=== PATIENT | female | born 1945 | race African-American/Black ===

== ENCOUNTER → 2016-07-14 | Outpatient (CLI) | payer MEDICARE, OTHER ==
[~2016-07-14] MED LIST: REGADENOSON 0.4 MG/5 ML DISP.SYRIN. IV ONE
--- NOTE | 2016-07-14 09:23 | RAD ---
DATE: 07/14/2016 EXAM: DIGITAL SCREEN BILAT W/CAD HISTORY: Routine screening COMPARISON: 11/13/2011 This study was interpreted with the benefit of Computerized Aided Detection (CAD). FINDINGS: The breasts are predominantly fatty in nature. No new or enlarging breast densities are seen. Benign type calcifications are present. No suspicious microcalcifications have developed. IMPRESSION: Stable mammograms without evidence of malignancy. BI-RADS CATEGORY: 2 BENIGN FINDING(S) RECOMMENDED FOLLOW-UP: 12M 12 MONTH FOLLOW-UP PQRS compliance statement: Patient information was entered into a reminder system with a target due date for the next mammogram. Mammography is a sensitive method for finding small breast cancers, but it does not detect them all and is not a substitute for careful clinical examination. A negative mammogram does not negate a clinically suspicious finding and should not result in delay in biopsying a clinically suspicious abnormality. "Our facility is accredited by the [employer] Mammography Program."
--- NOTE | 2016-07-14 09:24 | RAD ---
APPROVED REPORT Patient Location: OUT-PATIENT Laterality:Bilateral Indications Bruit RT Doppler Spectral Velocity Analysis Right Left pCCA 61/12 cm/spCCA 80/17 cm/s mCCA 71/16 cm/smCCA 74/16 cm/s dCCA 63/16 cm/sdCCA 63/15 cm/s Bulb 52/15 cm/sBulb 51/16 cm/s ECA 64/ cm/sECA 31/ cm/s pICA 46/14 cm/spICA 49/22 cm/s Derrick 60/19 cm/smICA 77/22 cm/s dICA 62/21 cm/sdICA 76/29 cm/s Vert. 49/ cm/sVert. 39/ cm/s Subcl. 72/ cm/sSubcl. 139/ cm/s ICA/CCA 0.87ICA/CCA 0.96 Findings Grayscale images of the bilateral common carotid arteries and internal and external carotid arteries reveals mild intimal hyperplasia without any significant obstructive disease. Velocity profiles and spectral tracings demonstrate no evidence of significant stenosis in the bilate ral internal carotid vessels.. The bilateral vertebral velocities are antegrade. No significant fe nosis is identified in the subclavian vessels bilaterally. Critical Notification Critical Value: No <Conclusion> No significant stenosis in the bilateral carotid arterial system.
--- NOTE | 2016-07-14 11:34 | CARD ---
APPROVED REPORT EXAM: Two-dimensional and M-mode echocardiogram with Doppler and color Doppler. Other Information Quality : Good INDICATION Chest Pain 2D DIMENSIONS RVDd3.1 (2.9-3.5cm)Left Atrium(2D)4.2 (1.6-4.0cm) IVSd1.0 (0.7-1.1cm)Aortic Root(2D)2.7 (2.0-3.7cm) LVDd5.2 (3.9-5.9cm)LVOT Diameter2.0 (1.8-2.4cm) PWd1.1 (0.7-1.1cm)LVDs4.2 (2.5-4.0cm) FS (%) 22.0 %SV55.3 ml LVEF(%)45.0 (>50%) Aortic Valve AoV Peak Masood.117.8cm/sAoV VTI26.2cm AO Peak GR.5.6mmHgLVOT Peak Masood.72.6cm/s AO Mean GR.3mmHgAVA (VMAX)2.02cm2 SHAKIRA (VTI)2.30cm2 Mitral Valve MV E Jibryswg66.3cm/sMV DECEL [id number] MV A Vcjjjjqv642.4cm/sE/A Ratio0.9 Tricuspid Valve TR P. Kgnchksu760fw/sRAP LPJFGESN9siGi TR Peak Gr.45pxQhLJNV21cqDk Pulmonary Vein S1 Btidmkcf32.2cm/sD2 Tljpuwam61.9cm/s PVa [id number] LEFT VENTRICLE The left ventricle is normal size. There is normal left ventricular wall thickness. Low normal EF at 50-55%. May be related to severe bradycardia with HR of 50. There is normal LV segmental wall motion. Transmitral Doppler flow pattern is Grade I-abnormal relaxation pattern. RIGHT VENTRICLE The right ventricle is normal size. The right ventricular systolic function is normal. ATRIA The left atrium is mildly dilated. The right atrium size is normal. The interatrial septum is intact with no evidence for an atrial septal defect or patent foramen ovale as noted on 2-D or Doppler imagi ng. AORTIC VALVE The aortic valve is normal in structure and function. Doppler and Color Flow revealed no significant aortic regurgitation. There is no significant aortic valvular stenosis. MITRAL VALVE The mitral valve is thickened and calcified. There is no mitral valve stenosis. Doppler and Color-fanny w revealed mild mitral regurgitation. TRICUSPID VALVE The tricuspid valve is normal in structure and function. Doppler and Color Flow revealed trace tricus pid regurgitation. The PA pressure was estimated at 29 mmHg. There is no tricuspid valve stenosis. PULMONIC VALVE Doppler and Color Flow revealed mild pulmonic valvular regurgitation. There is no pulmonic valvular s tenosis. GREAT VESSELS The aortic root is normal in size. The ascending aorta is normal in size. The IVC is normal in size a nd collapses >50% with inspiration. PERICARDIAL EFFUSION There is no evidence of significant pericardial effusion. Critical Notification Critical Value: No <Conclusion> Low normal EF at 50-55%. May be related to severe bradycardia with HR of 50. There is normal LV segmental wall motion. Doppler and Color Flow revealed mild pulmonic valvular regurgitation.
--- NOTE | 2016-07-14 15:20 | RAD ---
APPROVED REPORT Test Type: Pharmacological Stress Nurse/Tech: Shelby Andrea R.N. Test Indications: c/p Cardiac History: mitral valve leak, htn Medications: See Electronic Medical Record Medical History: See Electronic Medical Record Resting ECG: SB w/ inverted T waves in leads AVR,III, V1,V3 Resting Heart Rate: 50 bpm Resting Blood Pressure: 185/72mmHg Pretest Chest Pain: No chest pain Nurse/Tech Notes S1S2. lungs CTA Consent: The procedure was explained to the patient in lay terms. Informed consent was witnessed. Jude eout was entered into [employer]. History and Stress Test performed by [facility]. Details Pharmacologic stress testing was performed using 0.4mg per 5ml of regadenoson given intravenously ove r 7-10 seconds. Stress Symptoms SOA, funny stomach feeling, increased H/A, pt already had h/a . T waves became inverted in leads II,A VF,V4-V6 after lexiscan given but did return upright again prior to the end of recovery period POST EXERCISE Reason for Termination: Infusion complete Max HR: 96 bpm Max Blood Pressure: 149/68mmHg Blood Pressure response to exercise: Normal blood pressure response during stress. Heart Rate response to exercise: wnl Chest Pain: No. Arrhythmia: No. ST Change: No. INTERPRETATION Stress EKG Conclusion: Baseline EKG showed sinus rhythm. No ischemic changes at peak stress. No arr hythmias. Imaging Protocol IMAGE PROTOCOL: Rest Tc-99m/stress Tc-99m 1 day Rest: Stress: Viability: Radiopharm.Tc99m KxlpsgzmmYb78i Sestamibi Tjga42hMe 32mCi Duration 15min. 12min. Img Date 07/14/2016 07/14/2016 Inj-Img Fowp67faa. 6min. Rest Admin Site:IV - Right ForearmAdministrator:ABBY Newberry Stress Admin Site: IV - Right ForearmAdministrator: ABBY Newberry STRESS DATA End Diast. Vol.105.0mlAv. Heart Rate56.0bpm End Syst. Vol.47.0mlCO Index BSA0.0L/min Myocardial Tmss266.0gEject. Khhqasys38.0% Stress Rates Pk. Fill Rate1.63EDV/secLVtime Pk. Fill 277.50msec Pk. Empty Rate2.42ESV/secLVtime Pk. Fntrb002.89msec 06/17 Pk. Fill1.17EDV/sec Stress Scores Regional WT1.00Summed WT9.00 Regional WM0.00Summed WM1.00 Study quality was good. Left Ventricular size was Normal at Rest and Stress. Lung uptake was Normal. Left Ventricular ejection fraction is 55%. LV Perfusion Scintigraphic images showed moderate reversible defect involving the anterior wall consistent with is chemia. Wall Motion Normal regional wall motion. LV Perf. Quant 17 Seg. SSS21.00 17 Seg. SRS0.00 17 Seg. SDS21.00 Stress Defect Extent (% LAD)69.40Rest Defect Extent (% LAD)0.00Rev. Defect Extent (% LAD)69.40 Stress Defect Extent (% LCX) 76.30Rest Defect Extent (% LCX)0.00Rev. Defect Extent (% LCX)76.30 Stress Defect Extent (% RCA)0.00Rest Defect Extent (% RCA)0.00Rev. Defect Extent (% RCA)0.00 Stress Defect Extent (% RENETTA)52.60Rest Defect Extent (% RENETTA)0.00Rev. Defect Extent (% RENETTA)52.60 Conclusion 1. Regadenoson cardioisotope stress test showed moderate amount of anterior wall ischemia. 2. Normal left ventricular systolic function with ejection fraction calculated at 55%. 3. Intermediate risk for cardiac events.
== END | disposition home or self-care (01) ==
LOC: NM 07:41
PROVIDERS: ATTEND Internal Medicine Cardiovascular Disease
DX: Z12.31 Encounter for screening mammogram for malignant neoplasm of breast (principal); I37.1 Nonrheumatic pulmonary valve insufficiency; R07.9 Chest pain, unspecified; R09.89 Other specified symptoms and signs involving the circulatory and respiratory systems
CPT/HCPCS: 78452; 93017; 93306; 93880; 96374; 96375; 96376; A9500; G0202; J2785; 77067

== ENCOUNTER → 2018-02-24 | Outpatient (CLI) | payer MEDICARE, OTHER ==
--- NOTE | 2018-02-24 15:17 | KCIC ---
History: Worsening right hip pain for one year. Comparison: None. Findings: AP and frog-leg views of the right hip. No acute fracture or dislocation is identified. No significant degeneration is seen. Hip joint space appears preserved. Impression: Unremarkable right hip radiographs for age. Electronically signed by: Yann Chery MD (02/24/2018 3:14 PM) [facility]
== END | disposition home or self-care (01) ==
LOC: KCIC 12:48
PROVIDERS: ATTEND Family Medicine
DX: M25.551 Pain in right hip (principal)
CPT/HCPCS: 73502

== ENCOUNTER → 2018-03-16 | Outpatient (CLI) | payer MEDICARE, OTHER ==
--- NOTE | 2018-03-16 14:37 | KCIC ---
MRI Lumbar Spine without contrast History: Low back pain, bilateral hip pain, pain for one month, muscle spasms Technique: Multiplanar, multi sequential noncontrast MR imaging was performed of the lumbar spine. Contrast: None Comparison: June 29, 2014 Findings: Lumbar vertebral body stature is preserved. There is negligible anterior spondylolisthesis L3-4. There is ffyw-oq-pfteoqzz degenerative disc disease at L3-4 and to lesser degree at L4-5, progressed at L3-4 in the interval. There is mild disc desiccation L5-S1. 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 There is no significant marrow edema. Conus terminates at L1-L2. L2-L3: There is guft-kd-yvdmvrce facet degenerative change and minimal buckling of the ligamentum flavum. Neural foramina and spinal canal are adequate. L3-L4: There is mild buckling of the ligamentum flavum and facet degenerative change. There is negligible bulge. Neural foramina are overall adequate, new superimposed small protrusion/extrusion near the proximal extraforaminal right L3 nerve root without significant displacement. Spinal canal is adequate. L4-L5: There is minimal buckling of the ligamentum flavum. There is negligible disc osteophyte complex and bulge as seen previously. Spinal canal is overall adequate. Neural foramina are adequate. L5-S1: There is fairly severe facet degenerative change. Spinal canal is adequate. There is mild posterior narrowing of the left neural foramen, right neural foramen adequate. Impression: 1. There is no new significant lumbar spinal stenosis. There has been progression of mild to moderate degenerative disc disease at L3-4, to lesser degree L4-5. There is now negligible anterior spondylolisthesis L3-4. There is multilevel lumbar facet degenerative change greatest at L5-S1. Shallow right extraforaminal protrusion/small extrusion at L3-4 as near the extraforaminal right L3 nerve root without significant impingement. Electronically signed by: Mark Johnson MD (03/16/2018 2:33 PM) [facility]
== END | disposition home or self-care (01) ==
LOC: KCIC MRI 13:48
PROVIDERS: ATTEND Orthopaedic Surgery Sports Medicine
DX: M51.36 Other intervertebral disc degeneration, lumbar region (principal); M51.26 Other intervertebral disc displacement, lumbar region
CPT/HCPCS: 72148

== ENCOUNTER → 2018-04-20 | Outpatient (CLI) | payer MEDICARE, OTHER ==
--- NOTE | 2018-04-20 15:18 | KCIC ---
Bilateral lower extremity arterial Doppler dated 04/20/2018. No comparison available. Clinical data indication: Bilateral leg pain. FINDINGS: Grayscale, color-flow and spectral waveform analysis performed. There is mild luminal irregularity throughout, consistent with diffuse atherosclerotic plaquing. No focal stenosis. The waveforms are triphasic to biphasic throughout. There is some mild relative velocity elevation of the right superficial femoral artery at its mid aspect, measuring 176 cm/s. IMPRESSION: 1. Diffuse atherosclerotic plaquing with no evidence of hemodynamically significant stenosis. 2. Relative velocity elevation of the mid right superficial femoral artery suggesting a mild to moderate grade narrowing. Electronically signed by: Yann Geiger MD (04/20/2018 3:14 PM) [facility]
== END | disposition home or self-care (01) ==
LOC: KCIC US 13:17
PROVIDERS: ATTEND Psychiatry & Neurology Neurology with Special Qualifications in Child Neurology
DX: I70.203 Unspecified atherosclerosis of native arteries of extremities, bilateral legs (principal)
CPT/HCPCS: 93925

== ENCOUNTER → 2018-04-29 | Outpatient (CLI) | payer MEDICARE, OTHER ==
[~2018-04-29] MED LIST changes: +ALBU2.5V5 NEB; +BACL20TA PO; +DICL100G18 TP; +DULO20CA PO; +ERGO500027 PO; +FENT1PAT13 TD; +FLUT9.9S NS; +IOHEXOL 180 MG/ML 10 ML VIAL. ONE; +LEVO150T PO; +LIDOCAINE 1% PF 2 ML VIAL. ONE; +LIOT5TAB11 PO; +LISI-334 PO; +LORA0.5T PO; +METF500T16 PO; +MULT1TAB52 PO; +NITR0.4T SL; +OMEP40CA5 PO; +PHEN8TAB PO; +POTA20TA82 PO; +PROVENTIL HFA6.7 GM IH; -REGADENOSON 0.4 MG/5 ML DISP.SYRIN. IV ONE; +SUCR1TAB35 PO; +TRIA15CR2 TP; +TRIM300C17 PO; +lidoderm patch; +methylPREDNISolone ACETATE 40 MG/ML VIAL. ONE; +methylPREDNISolone ACETATE 80 MG/ML VIAL. ONE
--- NOTE | 2018-04-29 22:48 | PAIN ---
DATE OF SERVICE: 04/29/2018 INITIAL CONSULTATION FOR PAIN CLINIC CHIEF COMPLAINT: Bilateral lower extremity pain. HISTORY OF PRESENT ILLNESS: The patient is a 72-year-old female who presents with history of pain for about 1 year, gradually increasing, not a result of any specific injury or action that she is aware of. Pain in the bilateral lower extremities is mostly in the posterior gluteus, posterior thigh, lateral thighs, especially the anterior thighs on the left and to the medial lower legs and anterior lower leg. The patient reports it is throbbing with tingling, numbness, radiating, aching, cramping, burning, feels cold as well in the legs bilaterally. No specific injury or action is noted. The patient reports it wakes her up from sleep about 4:00 a.m. every morning and she cannot go back to sleep because of the pain. The patient report it does not affect her bowel or bladder control, but does affect her ability to walk fairly significantly, worse with walking, standing, and changing positions, but still present with sitting even for more than about 5-10 minutes and lying down. The patient reports no loss of motor function, but significant fatigability especially the left lower extremity, but both legs with ambulation, walking and activity. The patient rates her disability rate from 0-10, 10 being the worst as a 9 to 10 with recreation and social activity, 8 to 10 with occupation, 8 with sleeping and 1 with self-care activities. The patient has had some trigger point injections, which she said were helpful in the back, but those were mostly for her back and hips. She has had no other formal physical therapy at this time and no other stretching exercise or chiropractic treatments otherwise. The patient did have an MRI scan of the lumbar spine showing mild to moderate degenerative disk disease at L3-L4, lesser degree at L4-L5 with multilevel facet degenerative changes greatest at L5-S1 with shallow disk extrusion at L3-L4 without significant impingement on the right L3 nerve root. Also hip films showing mild degenerative change of both hips without acute osseous abnormalities bilaterally. The patient has had venous Doppler studies, which were normal in the lower extremities as well, both arterial and venous. PAST MEDICAL HISTORY: The patient's past medical history is significant for hypertension, mitral valve leakage and arthritis. PREVIOUS SURGERY: Include hysterectomy, foot surgery, cholecystectomy and cardiac catheterization. CURRENT MEDICATIONS: Include Proventil inhaler, vitamin D2, lorazepam, Voltaren, triamcinolone, Cymbalta, baclofen, multivitamins, fentanyl, potassium, phentermine, Carafate, lisinopril, Tigan, Nitrostat, Synthroid, fluticasone nasal spray, metformin, Cytomel and omeprazole. ALLERGIES: The patient has no known drug allergies. FAMILY HISTORY: Significant for no major medical problems or conditions she is aware of. SOCIAL HISTORY: The patient does not drink alcohol, does not smoke, does not use any illegal, illicit or recreational drugs, is , lives with her spouse, lives locally in [place], [place]. REVIEW OF SYSTEMS: The patient's review of systems is positive for those items mentioned in the history of present illness. All systems reviewed and otherwise negative. It is complete, full and well documented on the patient's chart. PHYSICAL EXAMINATION: VITAL SIGNS: Today, the patient's blood pressure is 156/85, pulse 54, respirations are 16, temperature is 98.0 degree Fahrenheit, height is 5 feet 7 inches and weight is 170 pounds. GENERAL: The patient is awake, alert, oriented, appropriate, very pleasant demeanor. HEENT: Head shows normocephalic and atraumatic. Extraocular movements are intact and symmetrical. Oral cavity: Mucous membranes are moist and pink. Dentition is intact. NECK: Shows anterior throat is supple without palpable lymphadenopathy noted. Swallow reflex is symmetrical. CHEST: Shows normal with inspection. Breath sounds are clear to auscultation bilaterally. HEART: Shows S1 and S2 clear. No murmurs are auscultated. ABDOMEN: Soft, nontender and nondistended. No palpable organomegaly is noted. No rebound or guarding demonstrated. BACK: Shows spine grossly in the midline. Normal appearing thoracic kyphosis and lumbar lordotic curvature. No previous surgical scars are noted. Lumbar paraspinous muscle shows symmetrical on inspection. On palpation shows some moderate tenderness, but only diffusely in the middle and lower distribution of the paraspinous muscles without radiation. The patient shows good rotational motion of the lumbar spine both laterally as well as extension and flexion without significant pain reported. The patient shows no tenderness over the sacrum or sacroiliac regions over the spinous processes bilaterally. EXTREMITIES: The patient's lower extremities show deep tendon reflexes at 1+ in the patellar and tendo calcaneus tendons are equal. Motor exam is strong with 5/5 dorsiflexion, extension, quadriceps and hamstring flexion and are symmetrical. The patient's peripheral pulses are 1+ posterior tibial. No peripheral edema. Straight leg raising noted to be negative for reproduction of radicular symptoms bilaterally. The patient will stand, stand on her toes without significant difficulty or loss of balance and is able to walk with a normal-appearing gait, is not using any assistive devices with her on her visit today. SKIN: Shows warm and dry and good turgor. No edema, no sores, rashes or bruising. IMPRESSION: 1. This is a 72-year-old female with a long history approximately one year of low back, bilateral lower extremity pain, left slightly worse than the right. 2. MRI scan of the lumbar spine as noted. 3. Arthritis. 4. Hypertension. PLAN: Options were discussed with the patient including conservative medical management, physical therapy, interventional techniques. She would like to pursue with interventional techniques. We discussed a lumbar epidural steroid injection using description as well as anatomical models to describe the procedure. Risks were then discussed including, but not limited to bleeding, infection, possibility of epidural hematoma, subsequent neurological compromise, dural puncture, headaches, spinal cord and/or nerve damage, side effects of steroid medication and poor results regarding pain control. The patient understands and wished to proceed. The patient will return to the clinic in approximately 2 weeks for followup, was counseled as to return appointment, activity level and side effects to be aware of. DIAGNOSIS: Lumbar radiculopathy with lumbar degenerative disk disease. PROCEDURES: Lumbar epidural steroid injection, translaminar approach at the L3-L4 level using C-arm fluoroscopic guidance under sterile prep and drape using local anesthetic. MEDICATION INJECTED: A total of 120 mg Depo-Medrol plus 10 mL of preservative-free normal saline and 2 mL of Isovue for contrast. CONDITION AT DISCHARGE: Stable. The patient tolerated the procedure well and had no complications. JOANNA SHANKAR MD DR: SHAKIR/carol JOB#: [id number] / [id number] JIMMIE Roth MD
== END | disposition home or self-care (01) ==
LOC: PNCL 09:25
PROVIDERS: ATTEND Anesthesiology
DX: M51.16 Intervertebral disc disorders with radiculopathy, lumbar region (principal); M19.90 Unspecified osteoarthritis, unspecified site; I10 Essential (primary) hypertension; I25.10 Atherosclerotic heart disease of native coronary artery without angina pectoris; Z79.899 Other long term (current) drug therapy; Z98.890 Other specified postprocedural states
CPT/HCPCS: 62323; J1030; J1040; Q9965

== ENCOUNTER → 2019-01-17 | Outpatient (CLI) | payer MEDICARE, OTHER ==
[~2019-01-17] MED LIST changes: +ALBU2.5V8 IH; -IOHEXOL 180 MG/ML 10 ML VIAL. ONE; -LIDOCAINE 1% PF 2 ML VIAL. ONE; -PROVENTIL HFA6.7 GM IH; -methylPREDNISolone ACETATE 40 MG/ML VIAL. ONE; -methylPREDNISolone ACETATE 80 MG/ML VIAL. ONE
--- NOTE | 2019-01-17 11:07 | KCIC ---
EXAM: Dual energy x-ray absorptiometry (DEXA). HISTORY: Postmenopausal female presents for osteoporosis screening. COMPARISON: None. TECHNIQUE: Dual energy x-ray absorptiometry of the lumbar spine and left hip was performed. Calculation of bone mineral density based on standard deviations above or below the expected young adult normal value (T-score) was completed. FINDINGS: The average bone mineral density in the 1st through 4th lumbar vertebrae is 1.072 g/cmxcm, corresponding with a T-score of 0.2. The average total bone mineral density in the left hip is 0.809 g/cmxcm, corresponding with a T-score of -1.1. IMPRESSION: 1. Osteopenia measured at the left hip. 2. Normal bone mineral density measured the lumbar spine. Note: Definitions established by the [employer] Organization: 1. Normal: T-score is -1.0 or above. 2. Osteopenia: T-score is between -1.0 and -2.5 . 3. Osteoporosis: T-score is -2.5 or below. Electronically signed by: Sharmila Acosta MD (01/17/2019 11:04 AM) [facility]
--- NOTE | 2019-01-17 14:09 | KCIC ---
Bilateral digital screening mammograms with 3-D tomosynthesis: Reason for examination: Routine screening. History of bilateral breast reduction. Comparison is made to previous studies dated 07/14/2016 and 11/13/2011. Bilateral mammograms in CC and oblique projections were obtained with 2-D imaging and 3-D tomosynthesis imaging on a [employer] Inspiration unit and reviewed on the workstation. Interpretation was made with the benefit of CAD. The skin and nipples show no abnormalities. No abnormal axillary lymph nodes are seen. The breast parenchyma is predominantly fatty. (Breast density: Category A.) There are no dominant masses, suspicious calcifications or architectural distortion. Impression: No evidence of malignancy. Recommend routine screening. BI-RAD Category 1: Negative. "Our facility is accredited by the [employer] Mammography Program." This patient's information has been entered into a reminder system for the patient to be notified with the results of her examination and a target date for the next mammogram. Electronically signed by: Marie Flores MD (01/17/2019 2:06 PM) [id number]
== END | disposition home or self-care (01) ==
LOC: KCIC DEXA 10:24
PROVIDERS: ATTEND Family Medicine
DX: Z12.31 Encounter for screening mammogram for malignant neoplasm of breast (principal); Z13.820 Encounter for screening for osteoporosis; M85.88 Other specified disorders of bone density and structure, other site; N95.9 Unspecified menopausal and perimenopausal disorder
CPT/HCPCS: 77063; 77067; 77080

== ENCOUNTER → 2021-08-12 | Outpatient (CLI) | payer MEDICARE, OTHER ==
[~2021-08-12] MED LIST changes: -ALBU2.5V8 IH; -DICL100G18 TP; +DICL100G54 TP; -LISI-334 PO; +LISI20TA18 PO; +MULT-445 PO; -MULT1TAB52 PO; -NITR0.4T SL; +NITR0.4T24 SL; -OMEP40CA5 PO; +OMEP40CA7 PO; +POTA20TA4 PO; -POTA20TA82 PO; +PROVENTIL HFA6.7 GM IH
--- NOTE | 2021-08-12 14:55 | KCIC ---
Bilateral digital screening 2-D and 3-D (digital breast tomosynthesis) mammogram: Reason for examination: Routine screening. Comparison: Mammogram from 01/17/2019. Interpretation was made with the benefit of CAD. FINDINGS: Breast density: Category A. Breast tissue is almost entirely fatty. No suspicious breast mass, malignant appearing calcifications, or architectural distortion is seen. IMPRESSION: No evidence of malignancy. Assessment: BI-RADS 1. Negative. Recommendation: Routine screening mammograms. The patient will receive a letter with the results in the mail. Patient information will be entered i nto the mammography reminder system with a target recall date for the next mammogram. A reminder moo er will be generated. Electronically signed by: Lucie Suh MD (08/12/2021 2:53 PM) [email or web address]
== END ==
LOC: KCIC 09:40
PROVIDERS: ATTEND Family Medicine
DX: Z12.31 Encounter for screening mammogram for malignant neoplasm of breast (principal)
CPT/HCPCS: 77063; 77067

== ENCOUNTER → 2021-09-10 | Outpatient (CLI) | payer MEDICARE, OTHER ==
[~2021-09-10] MED LIST changes: +IOHEXOL 240 MG/ML 50ML VIAL. PO ONE; +IOHEXOL 300 MG/ML 100ML VIAL. IV ONE
--- NOTE | 2021-09-11 11:22 | KCIC ---
CT ABDOMEN+PELVIS W dated 09/10/2021 10:20 AM Indication:Reason: Abdominal pain, umbilical area. Pressure. Hx. bladder infection. / Spl. Instructi ons: 100cc Omni 300 / History: Bladder surgery,total hysterectomy, appendectomy, cholecystectomy. Comparison: No comparison is available. Technique: CT images were performed following oral contrast ingestion and using an infusion of 100 mL Omnipaque 300. One or more of the following individualized dose reduction techniques were utilized for this examinat ion: 1. Automated exposure control 2. Adjustment of the mA and/or kV according to patient size 3. Use of iterative reconstruction technique Findings: The lung bases are clear. The liver and spleen are homogeneous in density and normal in configuration . Kidneys enhance with contrast. No mass or obstruction is seen. The adrenal glands are not enlarged. The pancreas appears normal. No retroperitoneal or mesenteric adenopathy is seen. There is no appare nt abdominal mass or inflammatory process. Postoperative changes are shown at the stomach. There is n o evidence of bowel obstruction. There is some diverticulosis of the colon without apparent diverticu litis. A normal appendix is seen arising from the cecum. Images through the pelvis show no abnormality of the distal ureters or bladder. No pelvic or inguinal adenopathy is seen. There is no apparent pelvic soft tissue mass. There is fairly extensive divertic ulosis of the sigmoid colon. There is suggestion of some wall thickening particularly through the pro ximal sigmoid colon. There is no obvious adjacent inflammation. IMPRESSION: No definite acute abnormality. There is prominent diverticulosis of the left colon. Some wall thicken ing of the sigmoid segment could relate to muscular hypertrophy, although low-grade diverticulitis is possible. Electronically signed by: Godfrey Yen Jr., MD (09/11/2021 8:38 AM) [facility]
== END ==
LOC: KCIC CT 09:17
PROVIDERS: ATTEND Family Medicine
DX: K57.30 Diverticulosis of large intestine without perforation or abscess without bleeding (principal); K63.89 Other specified diseases of intestine
CPT/HCPCS: 74177; Q9966; Q9967